=== PATIENT | male | born 1980 | race Caucasian/White ===

== ENCOUNTER 2022-09-18 12:47 | Emergency (ER) | payer SELFPAY ==
[~2022-09-18] VITALS: Ht 175.3 cm; Wt 68.0 kg
[~2022-09-18 12:47] MED LIST: Bactrim Ds Tab1 EACH PO; CEPH500 PO; Diflucan100 MG PO; HYDACE5 PO; HYDACE5325 PO; Keflex500 MG PO; METRIBP PO; Norco 5-325 Ta1 EACH PO; Zithromax250 MG PO
[2022-09-18 13:17] VITALS: BP 123/67
[2022-09-18] MEDS ORDERED: AMOCLA875 PO (13:57)
== END 2022-09-18 14:02 | disposition home or self-care (01) ==
LOC: ER 12:47
DX: S61.451A Open bite of right hand, initial encounter (principal); W55.01XA Bitten by cat, initial encounter
CPT/HCPCS: 99282